=== PATIENT | male | born 1950 | race Caucasian/White ===

== ENCOUNTER 2022-02-17 21:45 | Inpatient (IN) | payer MEDICARE ==
[2022-02-17 22:28] LABS: EOSINOPHILS % (AUTO) 0.4 %; HCT - HEMATOCRIT 27.7 % (42.0-52.0); HGB - HEMOGLOBIN 9.4 g/dL (14.0-18.0); LYMPHOCYTES # (AUTO) 0.1 10^3/uL (1.5-3.5); LYMPHOCYTES % (AUTO) 1.9 %; MEAN CORPUSCULAR HEMOGLOBIN 31.5 pg (27.0-31.0); MEAN CORPUSCULAR HGB CONC 33.9 g/dL (32.0-36.0); MEAN PLATELET VOLUME 11.4 fL (7.4-11.4); MONOCYTES # (AUTO) 0.1 10^3/uL (0.0-1.0); MONOCYTES % (AUTO) 2.5 %; NEUTROPHILS # (AUTO) 5.4 10^3/uL (1.5-6.6); NEUTROPHILS % (AUTO) 94.8 %; PLT - PLATELET COUNT 185 10^3/uL (130-450); RED BLOOD COUNT 2.98 10^6/uL (4.70-6.10); WHITE BLOOD COUNT 5.7 x10^3/uL (4.8-10.8)
[2022-02-17 22:40] LABS: ALBUMIN 3.6 g/dL (3.2-5.5); ALBUMIN/GLOBULIN RATIO 1.3 (1.0-2.2); BILIRUBIN,TOTAL 0.9 mg/dL (0.2-1.0); CALCIUM 7.8 mg/dL (8.5-10.3); CREATININE 0.7 mg/dL (0.6-1.2); POTASSIUM 4.1 mmol/L (3.5-5.0); TOTAL PROTEIN 6.3 g/dL (6.7-8.2)
[2022-02-17 23:00] LABS: BILIRUBIN,URINE NEGATIVE (NEGATIVE); GLUCOSE, URINE (UA) NEGATIVE (NEGATIVE); KETONES,URINE (UA) NEGATIVE (NEGATIVE); LEUKOCYTE ESTERASE, URINE NEGATIVE (NEGATIVE); NITRITE,URINE NEGATIVE (NEGATIVE); OCCULT BLOOD,URINE NEGATIVE (NEGATIVE); PH,URINE 7.5 PH (5.0-7.5); PROTEIN,URINE TRACE mg/dL (NEGATIVE); UROBILINOGEN,URINE 4 E.U./dL (NORMAL)
[2022-02-17 23:01] LABS: CLARITY,URINE CLEAR (CLEAR)
[2022-02-17 23:07] LABS: BACTERIA,URINE None Seen /HPF (None Seen); RBC,URINE 0-5 /HPF (0-5); SQUAMOUS EPITHELIAL CELL,UR NONE SEEN (<= Few); WBC,URINE 0-3 /HPF (0-3)
[2022-02-17 23:16] LABS: B. PARAPERTUSSIS- RESP PCR PAN NOT DETECTED; B. PERTUSSIS- RESP PCR PANEL NOT DETECTED; C. PNEUMONIAE- RESP PCR PANEL NOT DETECTED; CORONAVIRUS 229E-RESP PCR NOT DETECTED; CORONAVIRUS HKU1-RESP PCR NOT DETECTED; CORONAVIRUS NL63-RESP PCR NOT DETECTED; CORONAVIRUS OC43-RESP PCR NOT DETECTED; HUMAN METAPNEUMOVIRUS NOT DETECTED; INFLUENZA A- RESP PCR PANEL NOT DETECTED; INFLUENZA B - RESP PCR PANEL NOT DETECTED; M. PNEUMONIAE- RESP PCR PANEL NOT DETECTED; PARAINFLUENZA VIRUS 1 NOT DETECTED; PARAINFLUENZA VIRUS 2 NOT DETECTED; PARAINFLUENZA VIRUS 3 NOT DETECTED; PARAINFLUENZA VIRUS 4 NOT DETECTED; RHINOVIRUS/ENTEROVIRUS NOT DETECTED; RSV- RESP PCR PANEL NOT DETECTED; SARS-CoV-2 -RESP PCR PANEL NOT DETECTED
--- NOTE | 2022-02-17 23:32 | XRAY Report ---
PROCEDURE: Chest 1 View X-Ray INDICATIONS: SOA TECHNIQUE: One view of the chest was acquired. COMPARISON: None. FINDINGS: Surgical changes and devices: None. Lungs and pleura: No pleural effusions or pneumothorax. Lungs are clear. Mediastinum: Mediastinal contours appear normal. Heart size is normal. Bones and chest wall: No suspicious bony lesions. Overlying soft tissues appear unremarkable. IMPRESSION: No acute cardiopulmonary abnormality. Reviewed by: Aurelio Jimenez MD on 02/17/2022 11:39 PM PDT Approved by: Aurelio Jimenez MD on 02/17/2022 11:39 PM PDT Station ID: [id number]
[2022-02-17] MEDS ORDERED: iohexoL-300 100 ML VIAL ONE (23:47)
[2022-02-18] MEDS ORDERED: iohexoL-300 100 ML VIAL IVP ONE (00:58)
[2022-02-18] MEDS ORDERED: ACETAMINOPHEN 325 MG TABLET PO STA (01:05)
--- NOTE | 2022-02-18 01:16 | CT Report ---
PROCEDURE: Abdomen/Pelvis W INDICATIONS: lower abdominal pain/history of amyloidosis CONTRAST: IV CONTRAST: Isovue 300 ml: 100 PO CONTRAST: *NO PO CONTRAST TECHNIQUE: After the administration of intravenous contrast, 5 mm thick sections acquired from the diaphragms to the symphysis. 5 mm thick coronal and sagittal reformats were acquired. For radiation dose reducti on, the following was used: automated exposure control, adjustment of mA and/or kV according to nico ent size. COMPARISON: None. FINDINGS: Image quality: Excellent. ABDOMEN: Lung bases: Bibasilar atelectasis. No pleural effusion. Heart size is normal. Solid organs: Liver and spleen are normal in size and enhancement. No focal lesion. Gallbladder is n ot distended. Increased conspicuity of the gallbladder wall. No calcified gallstones seen. Biliary system is non dilated. Pancreas enhances normally. No adrenal nodules. Kidneys demonstrate normal size and enhancement, without hydronephrosis. Peritoneum and bowel: Increased throughout the colon. Prominent loops of small bowel which are gas-fi lled in the left abdomen. No discrete transition point. The appendix is not dilated. No free fluid or air. Nodes and vessels: No retroperitoneal or mesenteric adenopathy by size criteria. Aorta and inferior vena cava are normal in size. Miscellaneous: No ventral hernias. PELVIS: Genitourinary: Bladder wall thickness is normal. Bladder is mildly distended. Miscellaneous: No inguinal hernias or adenopathy. Bones: No suspicious bony lesions. No vertebral body compression fractures. IMPRESSION: 1. Increased throughout the colon. This is concerning for constipation. 2. Dilated loops small bowel the left abdomen. No transition point demonstrated. This could be seen i n adynamic ileus. 3. Increased conspicuity of the gallbladder wall. However, the gallbladder is nondistended. Concern f or cholecystitis consider gallbladder ultrasound. Reviewed by: Aurelio Jimenez MD on 02/18/2022 1:15 AM PDT Approved by: Aurelio Jimenez MD on 02/18/2022 1:15 AM PDT Station ID: [id number]
--- NOTE | 2022-02-18 01:39 | ED Physician Documentation ---
History of Present Illness - Stated complaint Stated Complaint: FEVER, NASEA - Chief complaint Chief Complaint: General - History obtained from History obtained from: Patient - Additonal information Additional information: Patient is a 71-year-old gentleman presenting for evaluation of feeling feverish and weakness. He has a history significant for systemic AL amyloidosis and Sees providers through [facility].He recently started a new treatment this past week on Sunday with 2 injections. This evening he was feeling weak and felt feverish. At home they measured a temperature of 100.8. They contacted their oncology service and the nurse on-call directed for him to come to the emergency department. He has not taken any medications to lower a fever. He reports ongoing abdominal pains with his amyloidosis including issues with constipation. He does report that the pain is slightly worse tonight in the lower abdomen. He denies chest pain, difficulty breathing, vomiting, Dysuria. Review of Systems Constitutional: reports: Fever Nose: denies: Congestion Cardiac: denies: Chest pain / pressure Respiratory: denies: Dyspnea, Cough GI: reports: Abdominal Pain, Constipation. denies: Vomiting, Diarrhea : denies: Dysuria Musculoskeletal: denies: Back pain Neurologic: reports: Generalized weakness PD PAST MEDICAL HISTORY - Allergies Allergies/Adverse Reactions: Allergies Allergy/AdvReac Type Severity Reaction Status Date / Time Sulfa (Sulfonamide Allergy Hives Verified 02/17/22 21:56 Antibiotics) beta blockers Allergy Anaphylaxis Uncoded 02/18/22 01:57 PD ED PE NORMAL - General General: Alert and oriented X 3, No acute distress, Well developed/nourished - HEENT HEENT: Atraumatic, Moist mucous membranes - Neck Neck: Supple, no meningeal sign - Cardiac Cardiac: RRR, Strong equal pulses - Respiratory Respiratory: No respiratory distress, Clear bilaterally - Abdomen Abdomen: Normal bowel sounds, Soft, Non tender, Non distended - Derm Derm: Warm and dry - Extremities Extremities: No edema - Neuro Neuro: Normal speech Results - Vitals Vitals: Vital Signs - 24 hr 02/17/22 02/17/22 02/18/22 21:50 23:33 00:07 Temperature 37.2 C Heart Rate 106 H 102 H 102 H Respiratory 18 17 18 Rate Blood Pressure 142/64 H 129/66 128/72 O2 Saturation 100 95 98 02/18/22 02/18/22 00:40 01:00 Temperature Heart Rate 105 H 108 H Respiratory 18 18 Rate Blood Pressure 124/73 137/74 H O2 Saturation 96 96 Oxygen O2 Source Room air - EKG (time done) 2308 Rate: Rate (enter#) (104) Rhythm: Sinus tachycardia Ischemia: No: ST elevation c/w ischemia Compare to prior EKG: Old EKG unavailable - Labs Labs: Laboratory Tests 02/17/22 02/17/22 02/17/22 22:08 22:08 22:12 WBC RBC Hgb Hct MCV MCH MCHC RDW Plt Count MPV Neut # (Auto) Lymph # (Auto) [place] # (Auto) Eos # (Auto) Baso # (Auto) Absolute Nucleated RBC Nucleated RBC % Sodium Potassium Chloride Carbon Dioxide Anion Gap BUN Creatinine Estimated GFR (MDRD) Glucose Lactic Acid Calcium Total Bilirubin AST ALT Alkaline Phosphatase B-Natriuretic Peptide 355 H Total Protein Albumin Globulin Albumin/Globulin Ratio TSH 0.61 Urine Color Urine Clarity Urine pH Ur Specific [place] Urine Protein Urine Glucose (UA) Urine Ketones Urine Occult Blood Urine Nitrite Urine Bilirubin Urine Urobilinogen Ur Leukocyte Esterase Urine RBC Urine WBC Ur Squamous Epith Cells Urine Bacteria Urine Culture Comments Urine Sodium Nasal Adenovirus (PCR) NOT DETECTED Nasal B. parapertussis DNA (PCR) NOT DETECTED Nasal Coronavir 229E PCR NOT DETECTED Nasal Coronavir HKU1 PCR NOT DETECTED Nasal Coronavir NL63 PCR NOT DETECTED Nasal Coronavir OC43 PCR NOT DETECTED Nasal Enterovir/Rhinovir PCR NOT DETECTED Nasal Influenza B PCR NOT DETECTED Nasal Influenza A PCR NOT DETECTED Nasal Parainfluen 1 PCR NOT DETECTED Nasal Parainfluen 2 PCR NOT DETECTED Nasal Parainfluen 3 PCR NOT DETECTED Nasal Parainfluen 4 PCR NOT DETECTED Nasal RSV (PCR) NOT DETECTED Nasal B.pertussis DNA PCR NOT DETECTED Nasal C.pneumoniae (PCR) NOT DETECTED Oj Human Metapneumo PCR NOT DETECTED Nasal M.pneumoniae (PCR) NOT DETECTED Nasal SARS-CoV-2 (PCR) NOT DETECTED 02/17/22 02/17/22 02/17/22 22:15 22:15 22:15 WBC 5.7 RBC 2.98 L Hgb 9.4 L Hct 27.7 L MCV 93.0 MCH 31.5 H MCHC 33.9 RDW 13.0 Plt Count 185 MPV 11.4 Neut # (Auto) 5.4 Lymph # (Auto) 0.1 L [place] # (Auto) 0.1 Eos # (Auto) 0.0 Baso # (Auto) 0.0 Absolute Nucleated RBC 0.00 Nucleated RBC % 0.0 Sodium 123 L Potassium 4.1 Chloride 91 L Carbon Dioxide 25 Anion Gap 7.0 BUN 15 Creatinine 0.7 Estimated GFR (MDRD) 112 Glucose 105 H Lactic Acid 0.8 Calcium 7.8 L Total Bilirubin 0.9 AST 91 H ALT 127 H Alkaline Phosphatase 68 B-Natriuretic Peptide Total Protein 6.3 L Albumin 3.6 Globulin 2.7 Albumin/Globulin Ratio 1.3 TSH Urine Color Urine Clarity Urine pH Ur Specific [place] Urine Protein Urine Glucose (UA) Urine Ketones Urine Occult Blood Urine Nitrite Urine Bilirubin Urine Urobilinogen Ur Leukocyte Esterase Urine RBC Urine WBC Ur Squamous Epith Cells Urine Bacteria Urine Culture Comments Urine Sodium Nasal Adenovirus (PCR) Nasal B. parapertussis DNA (PCR) Nasal Coronavir 229E PCR Nasal Coronavir HKU1 PCR Nasal Coronavir NL63 PCR Nasal Coronavir OC43 PCR Nasal Enterovir/Rhinovir PCR Nasal Influenza B PCR Nasal Influenza A PCR Nasal Parainfluen 1 PCR Nasal Parainfluen 2 PCR Nasal Parainfluen 3 PCR Nasal Parainfluen 4 PCR Nasal RSV (PCR) Nasal B.pertussis DNA PCR Nasal C.pneumoniae (PCR) Oj Human Metapneumo PCR Nasal M.pneumoniae (PCR) Nasal SARS-CoV-2 (PCR) 02/17/22 02/17/22 22:45 22:45 WBC RBC Hgb Hct MCV MCH MCHC RDW Plt Count MPV Neut # (Auto) Lymph # (Auto) [place] # (Auto) Eos # (Auto) Baso # (Auto) Absolute Nucleated RBC Nucleated RBC % Sodium Potassium Chloride Carbon Dioxide Anion Gap BUN Creatinine Estimated GFR (MDRD) Glucose Lactic Acid Calcium Total Bilirubin AST ALT Alkaline Phosphatase B-Natriuretic Peptide Total Protein Albumin Globulin Albumin/Globulin Ratio TSH Urine Color YELLOW Urine Clarity CLEAR Urine pH 7.5 Ur Specific [place] 1.010 Urine Protein TRACE Urine Glucose (UA) NEGATIVE Urine Ketones NEGATIVE Urine Occult Blood NEGATIVE Urine Nitrite NEGATIVE Urine Bilirubin NEGATIVE Urine Urobilinogen 4 H Ur Leukocyte Esterase NEGATIVE Urine RBC 0-5 Urine WBC 0-3 Ur Squamous Epith Cells NONE SEEN Urine Bacteria None Seen Urine Culture Comments NOT INDICATED Urine Sodium 35.0 Nasal Adenovirus (PCR) Nasal B. parapertussis DNA (PCR) Nasal Coronavir 229E PCR Nasal Coronavir HKU1 PCR Nasal Coronavir NL63 PCR Nasal Coronavir OC43 PCR Nasal Enterovir/Rhinovir PCR Nasal Influenza B PCR Nasal Influenza A PCR Nasal Parainfluen 1 PCR Nasal Parainfluen 2 PCR Nasal Parainfluen 3 PCR Nasal Parainfluen 4 PCR Nasal RSV (PCR) Nasal B.pertussis DNA PCR Nasal C.pneumoniae (PCR) Oj Human Metapneumo PCR Nasal M.pneumoniae (PCR) Nasal SARS-CoV-2 (PCR) PD MEDICAL DECISION MAKING - ED course Complexity details: reviewed results, re-evaluated patient, d/w patient, d/w family ED course: Patient with a history of amyloidosisPresenting for evaluation of generalized weakness and possible fever at home. He is afebrile here with normal white count and does not appear to be neutropenic. Sepsis work-up was initiated from triage.Labs remarkable for hyponatremia with sodium of 123. This appears to be decreased from labs from a few days ago and Patient denies a history of known hyponatremia. He does report drinking more water recently due to amyloidosis treatment as instructed by his oncologist.CT scan of the abdomen pelvis was obtained due to reports of lower abdominal tenderness. CT scan shows constipation.He has no upper abdominal tenderness or right upper quadrant tenderness to suggest gallbladder pathology. Most recent labs are from February 15 - Sodium 129, 2 weeks prior to that it was 128 0155 -D/W [facility]. Lebron [facility] hospitalist. Agrees with plan for admission for treatment of hyponatremia. Recommends starting normal saline at 200 mL/h for 1 L And then he will reassess sodium. Departure - Departure Disposition: [address] [facility] DC/Xfer Clinical Impression: Hyponatremia Condition: Stable Discharge Date/Time: 02/18/22 03:09
[2022-02-18] MEDS ORDERED: SODIUM CHLORIDE 0.9% 1,000 ML IV STA (01:54)
[2022-02-18] MEDS ORDERED: SODIUM CHLORIDE FLUSH 0.9% 10 ML SYRINGE IVP PRN (01:57)
[2022-02-18] MEDS ORDERED: ONDANSETRON 4 MG/2 ML VIAL IVP PRN (02:22)
[2022-02-18] MEDS ORDERED: FAMOTIDINE 20 MG/2 ML VIAL IVP STA (02:22)
--- NOTE | 2022-02-18 02:33 | HISTORY & PHYSICAL EXAMINATION ---
History and Physical - History and Physical Chief complaint Nausea and fever with weakness History of present illness This is 71-year-old male who presented to emergency room with generalized weakness and feeling feverish. Patient has been diagnosed with cystometrogram analysis and he has been followed by [facility] oncology. Patient was recently started on new medication and had 2 injections of it. His temperature 100.8 F at home yesterday therefore they contacted oncology service and they were asked to come to the emergency room. Patient complains of some shortness of breath which is mainly exertional. Previously had stress test within last 3 months which was normal as per him. He has not been diagnosed with congestive heart failure. He also had 2D echocardiogram in the past. He denies any history of lung problems including COPD asthma etc. He denies any chest pain, diarrhea dysuria vomiting etc. Patient's sodium is 123 in the emergency room. As per the emergency room physician's sodium was around 129 previously when he was seen at [facility]. Past medical history Amyloidosis Hypertension Past surgical history Colonoscopy and EGD Allergies Reviewed Home medications Reviewed Social history Patient did not have any history of alcohol or illicit drug use Family history history of coronary artery disease in the parents Review of system 12 point view system was done and it was negative except as per history of present illness Physical examination Vital signs Heart rate 108, blood pressure 137/74, respiration 18, oxygen saturation 96% on room air, temperature 37.2 C Head is atraumatic normocephalic Pupils are round and react to light and accommodation Neck no JVD no carotid bruits CVS regular rate rhythm Respiration antibody equal Abdomen nontender nondistended Extremities no clubbing cyanosis edema [employer] no focal deficits Patient is alert oriented time place and person Psych normal mood and affect Skin no ulcers or rashes Musculoskeletal no calf tenderness Labs Hemoglobin 9.4 sodium 123 chloride 91 AST 91 ALT 127 beta nitric peptide 355 urinalysis did not show any signs of UTI, viral panel was negative Chest x-ray did not show any acute abnormalities CT scan of the abdomen pelvis showed changes related to constipation and po ssible adynamic ileus Assessment 1. Hyponatremia 2. Constipation/ileus 3. Dyspnea 4. Hypertension 5. Amyloidosis. Plan Patient was recently started on treatment for amyloidosis. I do not have information about that medication. As per the emergency room physician, patient's sodium was 129 previously at [facility] which is dropped to 123 today. We will give him gentle IV hydration for 1 L. Check serum osmolality and urine osmolality. Check urine sodium level. Check TSH. Degenerated peptide is elevated. Consider 2D echocardiogram. Chest x-ray did not show any signs of pulmonary edema. Patient does not any lower extremity edema as well. Check troponin. Check D-dimer. Consider free water restriction and salt tablet if any signs of SIADH based on osmolality and urine sodium level. Check daily input and output. One-time dose of IV Pepcid. CODE STATUS Full code Total time taken for this was 70 minutes. This was telemedicine evaluation using bedside telemedicine audiovisual cart with the help of bedside nursing staff.
[2022-02-18] MEDS: SODIUM CHLORIDE FLUSH 0.9% 10 ML SYRINGE IVP SCH ×2 (03:16→18:35)
[2022-02-18] MEDS ORDERED: SENNA 8.6 MG TABLET PO SCH (09:00)
[2022-02-18] MEDS: polyethylene glycoL 3350 17 GM PACKET PO SCH (09:11)
[2022-02-18] MEDS: DOCUSATE SODIUM 250 MG CAPSULE PO SCH (09:13)
--- NOTE | 2022-02-18 09:24 | PHARMACY PROGRESS NOTE ---
- Best Possible Medication History Admit Date and Time: 02/18/22 0157 Processed by: Pharmacy Medication History completed: Yes Patient Interview: Completed Secondary Source(s): Spouse/Significant other, Pharmacy records, Insurance records As the person ultimately responsible for medication therapy, providers are able to order a medication from an existing home medication list in [facility] via the "Reconcile Routine" prior to Confirmation of that medication by applications support specialist. Such practice is discouraged except when the physician, in their clinical judgment, deems that a medical need exists for a medication without regard to previous use.
[2022-02-18] MEDS ORDERED: PRAMIPEXOLE 0.25 MG TABLET PO PRN (14:28)
[2022-02-18 14:47] LABS: CALCIUM 7.2 mg/dL (8.5-10.3); CREATININE 0.5 mg/dL (0.6-1.2); POTASSIUM 3.8 mmol/L (3.5-5.0)
[2022-02-18] MEDS ORDERED: PROCHLORPERAZINE 5 MG TABLET PO PRN (15:02)
[2022-02-18] MEDS: ACETAMINOPHEN 325 MG TABLET PO PRN (16:00)
[2022-02-18] MEDS ORDERED: SODIUM CHLORIDE 0.9% 1,000 ML IV SCH (16:00)
[2022-02-18] MEDS ORDERED: SALINE ENEMA 133 ML BOTTLE RC ONE (17:00)
[2022-02-18] MEDS ORDERED: GABAPENTIN 300 MG CAPSULE PO SCH (21:00)
[2022-02-18] MEDS ORDERED: ACETAMINOPHEN/CODEINE 300 MG/30 MG TABLET PO SCH (21:00)
[2022-02-18] MEDS ORDERED: LACTULOSE 10 GM /15 ML UDC PO ONE (21:00)
[2022-02-18] MEDS: ACYCLOVIR 200 MG CAPSULE PO SCH (21:04)
[2022-02-18] MEDS: SENNA 8.6 MG TABLET PO SCH (21:09)
[2022-02-19] MEDS: SODIUM CHLORIDE FLUSH 0.9% 10 ML SYRINGE IVP SCH ×3 (00:30→08:15)
[2022-02-19] MEDS: SENNA 8.6 MG TABLET PO SCH ×3 (03:14→15:55)
[2022-02-19 05:59] LABS: CALCIUM 6.8 mg/dL (8.5-10.3); CREATININE 0.4 mg/dL (0.6-1.2); POTASSIUM 3.4 mmol/L (3.5-5.0)
[2022-02-19] MEDS ORDERED: POTASSIUM CHLORIDE 20 MEQ TABLET PO ONE (07:45)
[2022-02-19] MEDS: ACYCLOVIR 200 MG CAPSULE PO SCH (08:12)
--- NOTE | 2022-02-19 10:30 | XRAY Report ---
PROCEDURE: Chest 1 View X-Ray INDICATIONS: ITS.REASON: worse short of breath TECHNIQUE: One view of the chest was acquired. COMPARISON: 02/17/2022 FINDINGS: Surgical changes and devices: None. Lungs and pleura: Low lung volumes can be seen, causing a crowded appearance to the lung markings. A bnormal interstitial prominence is seen, which is worse on the prior examination. Mediastinum: Mediastinal contours appear normal. Heart size is normal. Calcification is seen of th e aortic arch. Bones and chest wall: No suspicious bony lesions. Age-appropriate degenerative changes are seen. Overlying soft tissues appear unremarkable. IMPRESSION: Low lung volumes, with worsening interstitial prominence compared to the prior. Please consider devel oping pulmonary edema versus atypical infection. Reviewed by: Kashif Menjivar MD on 02/19/2022 9:29 AM SURAJ Approved by: Kashif Menjivar MD on 02/19/2022 9:29 AM SURAJ Station ID: [id number]
[2022-02-19] MEDS: DOCUSATE SODIUM 250 MG CAPSULE PO SCH (10:38)
[2022-02-19] MEDS: polyethylene glycoL 3350 17 GM PACKET PO SCH (10:39)
--- NOTE | 2022-02-19 13:30 | PROVIDER PROGRESS NOTE ---
Subjective - Prog Note Date Prog Note Date: 02/19/22 Prog Note Time: 13:27 - Subjective Subjective: He is still short of breath. Not much change. O2 sats have remained stable at 94% on room air, sometimes as high as 98% on room air. He is consistently t achycardic at 102 yesterday but is down into the 90s today. This morning's blood pressure is stable at 121/69. His symptoms on admission were shortness of breath and feeling feverish. His last temperature spike was 38 degrees on the night of admission. White cell count was normal, no pneumonia on chest x-ray, CT of abdomen showed constipation. Yesterday his requested that he be transferred to [facility]. 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 He was complaining of abdominal distention yesterday afternoon. Nursing had escalated his bowel protocol and he finally responded to an enema last night. I did speak to yesterday evening approximately 7:45 PM. She is the oncologist who is on-call for [facility]. She has accepted the patient in transfer. However the transfer center has no beds at this time. I informed Mr. Teresa of that this morning. I discussed his sodium. It is 124. No symptoms of hyponatremia. He is worried that this could be life-threatening. I described the levels of hyponatremia that could be life-threatening and 124 is most likely not. He also has chronicity and that his sodium was 129. With his last check at the solid tumor clinic. He feels more short of breath than yesterday. I carefully explained that he and his are very insistent upon receiving a second liter of fluid for his sodium. I did not recommend that but they insisted. I explained that congestive heart failure in his case is a result of stiffness of the muscle of his heart. Fluid hits his heart harder because his muscle is stiffer. More fluid causes more shortness of breath and congestive heart failure. BNP is higher this morning at 541 from 355 yesterday. Current Medications - Current Medications Current Medications: Active Medications Acetaminophen (Acetaminophen 325 Mg Tablet) 650 mg PO Q4HR PRN PRN Reason: Pain or Fever > 38C (100.4F) Last Admin: 02/18/22 16:00 Dose: 650 mg Acetaminophen/Codeine Phosphate (Acetaminophen/Codeine 300 Mg/30 Mg Tablet) 2 tab PO QPM [facility] Last Admin: 02/18/22 21:07 Dose: 2 tab Acyclovir (Acyclovir 200 Mg Capsule) 400 mg PO BID [facility] Last Admin: 02/19/22 08:12 Dose: 400 mg Docusate Sodium (Docusate Sodium 250 Mg Capsule) 250 - 500 mg PO DAILY [facility] Last Admin: 02/19/22 10:38 Dose: Not Given Gabapentin (Gabapentin 300 Mg Capsule) 900 mg PO QPM [facility] Last Admin: 02/18/22 21:04 Dose: 900 mg Ondansetron HCl (Ondansetron 4 Mg/2 Ml Vial) 4 mg IVP Q6HR PRN PRN Reason: Nausea / Vomiting Last Admin: 02/19/22 07:09 Dose: 4 mg Polyethylene Glycol (Polyethylene Glycol 3350 17 Gm Packet) 17 gm PO DAILY [facility] Last Admin: 02/19/22 10:39 Dose: Not Given Pramipexole Dihydrochloride (Pramipexole 0.25 Mg Tablet) 0.75 mg PO HS PRN PRN Reason: RLS Last Admin: 02/18/22 21:13 Dose: 0.75 mg Prochlorperazine Maleate (Prochlorperazine 5 Mg Tablet) 10 mg PO Q6H PRN PRN Reason: Nausea / Vomiting Senna (Senna 8.6 Mg Tablet) 17.2 - 25.8 mg PO Q6H [facility] Stop: 02/19/22 15:01 Last Admin: 02/19/22 10:39 Dose: Not Given Sodium Chloride (Sodium Chloride Flush 0.9% 10 Ml Syringe) 10 ml IVP PRN PRN PRN Reason: NEEDED PER PROVIDER ORDERS Last Admin: 02/18/22 03:17 Dose: 10 ml Sodium Chloride (Sodium Chloride Flush 0.9% 10 Ml Syringe) 10 ml IVP 0100,0900,1700 [facility] Last Admin: 02/19/22 08:15 Dose: 10 ml Acyclovir 400 mg PO BID 02/18/22 Bortezomib (Subq) [Velcade (Subq)] 3.5 mg SUBQ 02/18/22 Codeine Sulfate 60 mg PO QPM 02/18/22 Cyclophosphamide 200 mg IV 02/18/22 Daratumumab [Darzalex] 400 mg IV 02/18/22 Gabapentin [Neurontin] 900 mg PO QPM 02/18/22 Pramipexole [Mirapex] 0.75 mg PO HS PRN 02/18/22 Prochlorperazine Maleate [Compazine] 10 mg PO Q6H PRN 02/18/22 dexAMETHasone [Decadron] 12 mg PO TU 02/18/22 ondansetron HCL [Ondansetron HCl] 8 mg PO Q8H PRN 02/18/22 Objective - Vital Signs/Intake & Output Reviewed Vital Signs: Yes Vital Signs: Vital Signs x48h Temp Pulse Resp BP Pulse Ox 02/19/22 08:00 36.8 C 82 16 116/73 94 02/19/22 06:17 88 17 95 Intake & Output: Intake & Output 02/16/22 02/17/22 02/18/22 02/19/22 23:59 23:59 23:59 23:59 Intake Total 2150 1400 Output Total 700 Balance 1450 1400 - Objective General Appearance: positive: No acute distress, Alert, Other (Able to speak in complete sentences, sitting upright in bed. No increased respiratory effort.) Eyes Bilateral: positive: PERRL, EOMI ENT: positive: Pharynx nml Neck: positive: No JVD Respiratory: positive: No respiratory distress. negative: Wheezes, Rales, Rhonchi Cardiovascular: positive: Regular rate & rhythm Abdomen: positive: Non-tender, No organomegaly, Nml bowel sounds, No distention Skin: positive: Warm, Dry Extremities: positive: Full ROM, Pedal edema Neurologic/Psychiatric: positive: Oriented x3, CN's nml (2-12), Motor nml - Lab Results Fish Bones: 02/17/22 22:15 02/19/22 05:11 Other Labs: Lab Results x24hrs 02/19/22 02/19/22 02/18/22 Range/Units 05:11 05:11 14:33 Sodium 124 L 123 L (135-145) mmol/L Potassium 3.4 L 3.8 (3.5-5.0) mmol/L Chloride 97 L 96 L (101-111) mmol/L Carbon Dioxide 23 20 L (21-32) mmol/L Anion Gap 4.0 L 7.0 (6-13) BUN 12 15 (6-20) mg/dL Creatinine 0.4 L 0.5 L (0.6-1.2) mg/dL Estimated GFR (MDRD) 213 165 (>89) Glucose 105 H 104 H (70-100) mg/dL Calcium 6.8 L 7.2 L (8.5-10.3) mg/dL B-Natriuretic Peptide 541 H (5-100) pg/mL Assessment/Plan - Problem List (1) Heart failure with preserved ejection fraction Impression: Mild subjective increase in heart failure symptoms. On physical exam lungs are clear, no JVD. O2 sat is slightly lower at this time than it usually was yesterday. Treatment would be Lasix but I would feel it would be incomplete opposite of what he requested yesterday. I will hold off on giving Lasix and see how he does today. [facility] oncology did state that while they did accept him in transfer, he may be able to be discharged to home if his CHF improves. Qualifiers: Heart failure chronicity: acute on chronic Qualified Code(s): I50.33 - Acute on chronic diastolic (congestive) heart failure (2) Hyponatremia Impression: Slightly improved. He has received overall 2 L of normal saline since being admitted. I really do not want to give him more fluids considering he has very stiff ventricles. (3) Amyloidosis Impression: He has multiple myeloma. He presented with several months of weight loss and epigastric pain, and had an EGD December 2021. He was found to be [place] red. In November his hemoglobin was 11.5 and stable since August 2020. He was diagnosed as amyloidosis with GI involvement. He has an M spike IgG kappa. [place] level is 1996. Lambda is 7.8. CT of chest abdomen pelvis on November 23 is without lymphadenopathy or bony lesions. No hepatomegaly or splenomegaly. A transthoracic echo January 13, 2022 showed an ejection fraction of 55%. GLS 13.5% consistent with amyloidosis. February 01, 2022 a cardiac MRI had diffuse late gadolinium enhancement consistent with amyloidosis. Lack of appetite and carpal tunnel syndrome is noted to be his basic complaints. His last hemoglobin was 9.8 on February 15. Sodium was 129 on February 15. 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 But he also has carpal tunnel syndrome. He is due to see hand surgeon in March to see if that can be addressed. 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 He has stage I kidney disease. They are going to be monitoring his 24-hour urines every 3 months and his next 1 is due May 2022. 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 Proposed treatment regimen would be daratumumab, cyclophosphamide, bortezomib, and dexamethasone. He is also consented to do a multicenter double-blind study to evaluate the efficacy of [id number]. 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
--- NOTE | 2022-02-19 14:53 | Discharge Plan ---
Discharge Plan Problem Reviewed?: Yes Disposition: Home, Self Care Condition: Fair Diet: Soft (Because of amyloidosis in his GI tract would recommend soft, liquid diet with low fiber) Activity Restrictions: Activity as Tolerated Shower Restrictions: No Driving Restrictions: No Health Concerns: You presented to the emergency room with weakness, shortness of breath, and feeling feverish in the context of someone who has multiple myeloma and amyloidosis involving heart and GI tract. There is also suspicion that you have amyloidosis involving kidney and nervous system. You are currently being followed by [facility]. In the emergency room you did have a fever to 38.2. But white cell count was normal. Chest x-ray was clear of pneumonia. Urinalysis was negative for infection. And CT of the abdomen was done because of the constipation. Other than constipation there is no other findings on CT of the abdomen that were nefarious. You do have sludge in your gallbladder but your gallbladder is not acutely infected. Your sodium was 129 on February 15. And in the emergency room was 123. While it is on the low side it is not a dangerous number in and of itself. Overnight you were given a liter of fluids because your sodium was 123. You felt very strongly you wanted second liter of fluids and your sodium is 124 this morning on the day of discharge.. Unfortunately we do think your congestive heart failure from your amyloidosis is slightly worse With the extra liter of fluid. Chest x-ray showed slightly worse thickening of the "interstitium" of the lungs. We associate that with fluid. We measure a protein in association with congestive heart failure. It is called BNP. The higher it is, the worse the heart failure. Severe congestive heart failure has a BNP in the thousands. Your BNP was 355 on admission and is 541 on discharge with the liter of fluid. You will require increased oxygen at home. And you had an oxygen desat test before leaving. Your requested you to be transferred to the [facility]. While they have excepted you in transfer (Dr. Stokes), there are no beds available and you are unable to be transferred at this time. You have opted to go home and contact you clinic office tomorrow. Plan of Treatment: 1. You will go home on 3 L of oxygen at rest, and with sleep. 2. You will follow-up with [facility] in the next few days. 3. Usual treatment for heart failure with preserved ejection fraction such as yourself is diuretics. However we just finished giving you a liter of fluid and I would like your body to equilibrate itself before we then gave you diuretics. Your cancer doctor may opt to give you a small dose when you see them this week Care Goals: In reading your notes from the [facility], your goal is palliative with CAEL protocol. You hope to reduce the symptomatic burden of your disease but no goal of cure. You are being considered for a experimental protocol called JULES cardiac amyloid reaching for extended survival Assessment: is at the bedside. Strong advocate for her 's care. They will follow through with calling [facility] tomorrow to get an appointment with the office of Dr. Adonay Tamez. No Smoking: If you smoke, Please STOP! Call for help. Follow-up with: DAVIN CHRISTINE MD [Primary Care Provider] -
--- NOTE | 2022-02-19 15:08 | DISCHARGE SUMMARY ---
"Discharge Summary Admit Date: 02/18/22 Discharge Date: 02/19/22 Discharging Provider: Johanne Ding MD Primary Care Provider: Vicente Lunsford MD Code Status: Attempt Resuscitation Condition at Discharge: Fair Discharge Disposition: 01 Home, Self Care - DIAGNOSES Discharge Diagnoses with Status of Each Condition: 1. Class II congestive heart failure with preserved ejection fraction 2. 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 3. Hyponatremia 4. Chronic respiratory failure with hypoxemia 5. Hypokalemia 6. Chronic microcytic anemia - HPI History of Present Illness: The patient was recently diagnosed with multiple myeloma/amyloidosis AL. EGD confirms GI involvement, MRI and echo confirm cardiac involvement. Treatment regimen daratumumab, cyclophosphamide, bortezomib, dexamethasone. Presents with feeling feverish, fatigue, weakness, shortness of breath. Chest x-ray without pneumonia. UA without UTI. CT of abdomen done because of constipation that is getting worse over the months. Most likely constipation due to amyloidosis. CT showed constipation no acute disease. Sodium was 123. - CONSULTS | PROCEDURES Procedures: Initial chest x-ray was without acute cardiopulmonary changes. Repeat chest x- ray after 2 L of normal saline showed low lung volumes, worsening interstitial prominence. CT of abdomen and pelvis with increased conspicuity of the gallbladder wall. No calcified gallstones. Biliary system not dilated. Kidneys normal size without hydronephrosis. Prominent loops of small bowel are gas-filled on the left abdomen. No discrete transition point. No free fluid. Stool increased throughout the colon concerning for constipation. Enema - HOSPITAL COURSE Hospital Course: Patient was tentatively given 1 L of fluid for the hyponatremia. Next day sodium was 123. and patient were very firm and requesting that they wanted a second liter of fluid. I explained that I was worried about heart failure with preserved ejection fraction and that treatment is usually fluid restriction or Lasix. They really were feeling like they needed that second liter for his low sodium. After a second liter sodium was 124. BNP slightly worse at 541. He does require oxygen and O2 desat test was done and he is going to be needing 3 L at rest and with exertion. Repeat chest x-ray showed slight worsening of interstitial changes. But no change in lung exam. He is very tired. Still complaining of constipation. Hypokalemia was supplemented the morning of discharge. They requested transfer to [facility]. I was able to speak to Dr. Stokes who is on-call for solid tumors. They accepted the patient in transfer but set expectations by saying that they had no beds and they did not know when they were going to get beds. The patient felt stable enough for discharge and feels he will just contact his solid tumor clinic tomorrow. I did call Juan Antonio at the [place] transfer [facility] and let them know and they will take him off the list. At discharge temperature is 36.8. Heart rate 82. Blood pressure 116/73. Respirations 16. 94% on room air. He is 61 kg. He is a pale fatigued appearing gentleman who is gaunt. Has lost quite a bit of weight this last summer. Neck is supple. Lungs have diminished breath sounds at the bases but no wheezing. No increased respiratory effort. No sternocleidomastoid muscles visible with exertion. No rib retraction. Nevertheless he definitely has hypoxemia with shortness of breath. Abdomen is soft, hypoactive bowel sounds. Enema was given last night for constipation. Extremities are without edema. He is discharged without any change in his medications. He does wonder what he can eat if his amyloid is involving his GI tract. I suggested possible liquid diet and low fiber foods. Clear protein boost. Protein shakes. Greater than 30 minutes was coordinating discharge. - ALLERGIES Allergies/Adverse Reactions: Allergies Allergy/AdvReac Type Severity Reaction Status Date / Time Sulfa (Sulfonamide Allergy Hives Verified 02/17/22 21:56 Antibiotics) beta blockers Allergy Anaphylaxis Uncoded 02/18/22 01:57 - MEDICATIONS Home Medications: Ambulatory Orders Medication Instructions Recorded Confirmed Acyclovir 400 mg PO BID 02/18/22 02/18/22 Bortezomib (Subq) [Velcade (Subq)] 3.5 mg SUBQ 02/18/22 Codeine Sulfate 60 mg PO QPM 02/18/22 02/18/22 Cyclophosphamide 200 mg IV 02/18/22 Daratumumab [Darzalex] 400 mg IV 02/18/22 Gabapentin [Neurontin] 900 mg PO QPM 02/18/22 02/18/22 Pramipexole [Mirapex] 0.75 mg PO HS PRN 02/18/22 02/18/22 Prochlorperazine Maleate 10 mg PO Q6H PRN 02/18/22 02/18/22 [Compazine] dexAMETHasone [Decadron] 12 mg PO TU 02/18/22 02/18/22 ondansetron HCL [Ondansetron HCl] 8 mg PO Q8H PRN 02/18/22 02/18/22 - LABS Result Diagrams: 02/17/22 22:15 02/19/22 05:11"
[2022-02-19] MEDS: ACETAMINOPHEN 325 MG TABLET PO PRN (15:30)
[2022-02-19 15:48] VITALS: BP 135/86
== END 2022-02-19 16:11 | disposition home or self-care (01) | DRG 640 ==
LOC: ED 21:45 → MS2 02-18 01:57
PROVIDERS: ADMIT Internal Medicine; ATTEND Specialist
DX: E87.1 Hypo-osmolality and hyponatremia (principal); E85.89 Other amyloidosis; I50.33 Acute on chronic diastolic (congestive) heart failure; R06.02 Shortness of breath; R00.0 Tachycardia, unspecified; Z20.822 Contact with and (suspected) exposure to COVID-19; E85.4 Organ-limited amyloidosis; I43 Cardiomyopathy in diseases classified elsewhere; J96.11 Chronic respiratory failure with hypoxia; C90.00 Multiple myeloma not having achieved remission; E87.6 Hypokalemia; D50.9 Iron deficiency anemia, unspecified; K59.00 Constipation, unspecified; I11.0 Hypertensive heart disease with heart failure; Z82.49 Family history of ischemic heart disease and other diseases of the circulatory system
CPT/HCPCS: 36415; 71045; 74177; 80048; 80053; 81001; 83605; 83880; 83935; 84300; 84443; 85025; 87040; 87633; 93005; 94761; 99284; 99285; A9270; Q9967; 83930; 84484; 85379; 87086

== ENCOUNTER 2023-12-31 08:33 | Outpatient (CLI) | payer MEDICARE ==
[2023-12-31 09:24] LABS: THYROID STIMULATING HORMONE 0.63 uIU/mL (0.34-5.60)
[2023-12-31 09:30] LABS: PROLACTIN 11.46 ng/mL
== END 2023-12-31 08:34 | disposition home or self-care (01) ==
LOC: LAB 08:33
PROVIDERS: ATTEND Urology
DX: N52.9 Male erectile dysfunction, unspecified (principal); F52.32 Male orgasmic disorder
CPT/HCPCS: 36415; 84146; 84402; 84403; 84443